=== PATIENT | female | born 1975 | race Two or more races ===

== ENCOUNTER 2023-08-12 20:58 | Emergency (ER) | payer MEDICAID ==
[~2023-08-12] VITALS: Ht 170.2 cm; Wt 88.6 kg
[~2023-08-12 20:58] MED LIST: METH10TA4 PO; METH5TAB4 PO
[2023-08-12 21:02] VITALS: TEMP 98.1
[2023-08-12 21:50] LABS: BASOPHILS # (AUTO) 0.1 X10'3 (0-0.2); BASOPHILS % (AUTO) 0.6 % (0-1); EOSINOPHILS # (AUTO) 0.4 X10'3 (0-0.9); EOSINOPHILS % (AUTO) 4.8 % (0-6); HEMATOCRIT 41.3 % (35.0-45.0); HEMOGLOBIN 13.8 g/dl (12.0-16.0); LYMPHOCYTES # (AUTO) 2.9 X10'3 (1.1-4.8); LYMPHOCYTES % (AUTO) 31.6 % (21-51); MEAN CORPUSCULAR HEMOGLOBIN 29.2 PG (27.0-31.0); MEAN CORPUSCULAR HGB CONC 33.4 g/dL (33.0-36.5); MEAN CORPUSCULAR VOLUME 87.4 FL (78-98); MEAN PLATELET VOLUME 7.6 FL (7.4-10.4); MONOCYTES # (AUTO) 0.9 X10'3 (0-0.9); MONOCYTES % (AUTO) 9.6 % (2-12); NEUTROPHILS % (AUTO) 53.4 % (42-75); PLATELET COUNT 260 X10'3 (140-440); RED BLOOD COUNT 4.73 X10'6 (4.20-5.60); RED CELL DISTRIBUTION WIDTH 13.2 % (11.5-14.5); WHITE BLOOD COUNT 9.3 X10'3 (4.5-11.0)
[2023-08-12 21:51] LABS: ALANINE AMINOTRANSFERASE 24 U/L (12-78); ALBUMIN/GLOBULIN RATIO 0.8 (1.1-1.5); ALKALINE PHOSPHATASE 94 IU/L (46-116); ANION GAP 10 (8-16); ASPARTATE AMINO TRANSFERASE 28 U/L (10-37); BILIRUBIN,TOTAL 0.3 MG/DL (0.1-1.0); BLOOD UREA NITROGEN 18 MG/DL (7-18); BUN/CREATININE RATIO 19.6 (10.0-20.0); CALCIUM 8.9 MG/DL (8.5-10.1); CHLORIDE 106 MMOL/L (99-107); CREATININE 0.92 MG/DL (0.40-0.90); GLUCOSE 124 MG/DL (70-104); LIPASE 32 U/L (16-77); POTASSIUM 3.7 MMOL/L (3.5-5.1); SODIUM 142 MMOL/L (135-145); TOTAL CARBON DIOXIDE 25.7 MMOL/L (24-32); TOTAL PROTEIN 6.8 G/DL (6.4-8.2); eCRCL 71 ML/MIN; eGFR 65 ML/MIN
[2023-08-12] MEDS ORDERED: IBUP-1984 PO (22:41)
[2023-08-12 23:04] VITALS: BP 129/87; PULSE 83; RESP 17; O2SAT 100
[2023-08-12] MEDS: ketorolac tromethamine 15mg/ml inj. IM ONE (23:04)
== END 2023-08-12 23:05 | disposition home or self-care (01) ==
LOC: ER 20:59
DX: R07.89 Other chest pain (principal); F10.90 Alcohol use, unspecified, uncomplicated
CPT/HCPCS: 36415; 71045; 80053; 83690; 85025; 99284

== ENCOUNTER 2023-11-14 13:41 | Outpatient (CLI) | payer MEDICAID | END 2023-11-14 23:59 | disposition home or self-care (01) | LOC: MRI 13:41 | PROVIDERS: ATTEND Anesthesiology | DX: Z01.818 Encounter for other preprocedural examination (principal); M25.561 Pain in right knee; G89.29 Other chronic pain; M51.24 Other intervertebral disc displacement, thoracic region; M51.17 Intervertebral disc disorders with radiculopathy, lumbosacral region; M41.84 Other forms of scoliosis, thoracic region | CPT/HCPCS: 72146; 72148 ==

== ENCOUNTER 2023-11-16 21:19 | Emergency (ER) | payer MEDICAID ==
[~2023-11-16] VITALS: Ht 170.2 cm; Wt 92.3 kg
[2023-11-16 21:34] VITALS: BP 123/81; PULSE 82; RESP 18; TEMP 98.9; O2SAT 98
[2023-11-16] MEDS ORDERED: PRED20TA PO (22:37)
[2023-11-16] MEDS: dexamethasone sod phosphate 10mg/ml inj IM STA (23:13)
[2023-11-16] MEDS: ketorolac trometh. 30mg/ml inj. IM ONE (23:14)
== END 2023-11-16 23:24 | disposition home or self-care (01) ==
LOC: ER 21:20
DX: M79.676 Pain in unspecified toe(s) (principal); Z88.2 Allergy status to sulfonamides; Z79.899 Other long term (current) drug therapy
CPT/HCPCS: 96372; 99284; J1100; J1885

== ENCOUNTER 2023-12-23 12:50 | Outpatient (CLI) | payer MEDICAID | END 2023-12-23 23:59 | disposition home or self-care (01) | LOC: MRI 12:50 | PROVIDERS: ATTEND Anesthesiology | DX: M70.51 Other bursitis of knee, right knee (principal); M25.561 Pain in right knee; G89.29 Other chronic pain; Y93.89 Activity, other specified | CPT/HCPCS: 73721 ==

== ENCOUNTER 2024-02-12 22:44 | Emergency (ER) | payer MEDICAID ==
[~2024-02-12] VITALS: Ht 170.2 cm; Wt 98.1 kg
[2024-02-12 22:48] VITALS: TEMP 97.8
[2024-02-12 23:30] LABS: BASOPHILS % (AUTO) 0.5 % (0-1); EOSINOPHILS # (AUTO) 0.3 X10'3 (0-0.9); EOSINOPHILS % (AUTO) 3.3 % (0-6); HEMATOCRIT 40.8 % (35.0-45.0); HEMOGLOBIN 13.8 g/dl (12.0-16.0); LYMPHOCYTES # (AUTO) 3.3 X10'3 (1.1-4.8); LYMPHOCYTES % (AUTO) 37.4 % (21-51); MEAN CORPUSCULAR HEMOGLOBIN 30.4 PG (27.0-31.0); MEAN CORPUSCULAR HGB CONC 33.8 g/dL (33.0-36.5); MEAN CORPUSCULAR VOLUME 89.8 FL (78-98); MEAN PLATELET VOLUME 7.4 FL (7.4-10.4); MONOCYTES # (AUTO) 0.9 X10'3 (0-0.9); MONOCYTES % (AUTO) 10.1 % (2-12); NEUTROPHILS # (AUTO) 4.3 X10'3 (1.8-7.7); NEUTROPHILS % (AUTO) 48.7 % (42-75); PLATELET COUNT 230 X10'3 (140-440); RED BLOOD COUNT 4.54 X10'6 (4.20-5.60); RED CELL DISTRIBUTION WIDTH 14.4 % (11.5-14.5); WHITE BLOOD COUNT 8.8 X10'3 (4.5-11.0)
[2024-02-12 23:32] LABS: ALANINE AMINOTRANSFERASE 15 U/L (12-78); ALBUMIN 3.2 G/DL (3.4-5.0); ALKALINE PHOSPHATASE 85 IU/L (46-116); ANION GAP 7 (8-16); ASPARTATE AMINO TRANSFERASE 12 U/L (10-37); BILIRUBIN,TOTAL 0.2 MG/DL (0.1-1.0); BLOOD UREA NITROGEN 18 MG/DL (7-18); BUN/CREATININE RATIO 16.8 (10.0-20.0); CALCIUM 8.3 MG/DL (8.5-10.1); CHLORIDE 108 MMOL/L (99-107); CREATININE 1.07 MG/DL (0.40-0.90); ETHANOL < 10 MG/DL (<10); GLUCOSE 143 MG/DL (70-104); LIPASE 43 U/L (16-77); POTASSIUM 3.7 MMOL/L (3.5-5.1); SODIUM 138 MMOL/L (135-145); TOTAL CARBON DIOXIDE 23.4 MMOL/L (24-32); TOTAL PROTEIN 6.4 G/DL (6.4-8.2); eCRCL 60 ML/MIN; eGFR 54 ML/MIN
[2024-02-12 23:58] LABS: URINE HCG NEGATIVE (NEG)
[2024-02-13 00:20] LABS: BILIRUBIN,URINE NEGATIVE (Neg); CLARITY,URINE CLEAR (Clear); COLOR,URINE YELLOW (Yellow); GLUCOSE, URINE NEGATIVE (Neg); KETONES,URINE NEGATIVE (Neg); LEUKOCYTE ESTERASE ,URINE NEGATIVE (Neg); NITRITES, URINE NEGATIVE (Neg); OCCULT BLOOD,URINE NEGATIVE (Neg); PH,URINE 5.5 (4.8-8.0); PROTEIN,URINE NEGATIVE (Neg); UROBILINOGEN,URINE 0.2 E.U/dL (0.2-1.0)
[2024-02-13 00:32] LABS: UA COLLECTION TYPE CLN CATCH MIDSTREAM
[2024-02-13 00:35] VITALS: BP 110/71; PULSE 77; O2SAT 96
[2024-02-13 01:54] VITALS: RESP 16
[2024-02-13] MEDS: morphine 4 MG/ML inj SYRINge IM ONE (01:54)
[2024-02-13] MEDS: ondansetron 4mg rapidly disintigrating tab PO ONE (01:54)
== END 2024-02-13 02:02 | disposition home or self-care (01) ==
LOC: ER 22:45
DX: R10.32 Left lower quadrant pain (principal); F10.90 Alcohol use, unspecified, uncomplicated; Z88.2 Allergy status to sulfonamides; Z79.899 Other long term (current) drug therapy; Z98.890 Other specified postprocedural states
CPT/HCPCS: 36415; 80053; 80320; 81003; 81025; 83690; 84145; 85025; 96372; 99283; J2270